=== PATIENT | female | born 1945 | race Two or more races ===

== ENCOUNTER 2021-07-16 05:27 | Day surgery (SDC) | payer OTHER ==
[~2021-07-16 05:27] MED LIST: ATORVASTATIN CA20 MG PO; GLUMETZA500 MG PO; LOSARTAN PO; PRILOSEC OTC20 MG PO; TIROSINT25 MCG PO; VITAMIN D PO
[2021-07-16] MEDS ORDERED: IBU600 MG PO (09:53)
[2021-07-16] MEDS ORDERED: SURFAK240 M1 PO (09:53)
== END 2021-07-16 13:55 | disposition home or self-care (01) ==
LOC: CIR.AMB 05:27
PROVIDERS: ATTEND Obstetrics & Gynecology Gynecology
DX: N81.6 Rectocele (principal); E11.9 Type 2 diabetes mellitus without complications; K46.9 Unspecified abdominal hernia without obstruction or gangrene; I10 Essential (primary) hypertension; E78.5 Hyperlipidemia, unspecified; E03.9 Hypothyroidism, unspecified; K21.9 Gastro-esophageal reflux disease without esophagitis; B19.9 Unspecified viral hepatitis without hepatic coma